=== PATIENT | male | born 1960 | race Caucasian/White ===

== ENCOUNTER → 2018-03-12 | Outpatient (CLI) | payer OTHER ==
[~2018-03-12] MED LIST: LISI-368 PO; LOM PO; OND4 PO; PAN40 PO; PER PO; PRO25 PO; protonix
--- NOTE | 2018-03-15 01:23 | RT HOLTER TEST ---
FACILITY: [facility] PATIENT NAME: GIFTY IRWIN : [id number] MR: [id number] V: [id number] EXAM DATE: ORDERING PHYSICIAN: PORSCHE FLORES TECHNOLOGIST: KALEE Hook-up date: 2018-03-12 13:36:00 Duration: 47:06:00 Test Indications: DIZZINESS Medications: [id number] QRS complexes 16 Ventricular ectopics which represent <1 % of total QRS comp. 12 Supraventricular ectopics which represent <1 % of total QRS comp. * Paced QRS complexes which represent % of total QRS comp. VENTRICULAR ECTOPY 16 Isolated 0 Bigeminal Cycles 0 Couplets 0 Runs 0 Beats in Runs * Beats LONGEST at * BPM at :: -- * Beats FASTEST at * BPM at :: -- SUPRAVENTRICULAR ECTOPY 4 Isolated 0 Couplets 1 Runs 8 Beats in Runs 8 Beats LONGEST at 189 BPM at 06:14:02 2018-03-14 8 Beats FASTEST at 189 BPM at 06:14:02 2018-03-14 HEART RATES 64 MIN at 02:27:00 2018-03-13 95 AVG 193 MAX at 06:14:04 2018-03-14 LONGEST RR 1.040 secs at 02:43:52 2018-03-13 S-T LEVELS Channel 1 -12.800 mm MIN at 13:36:00 2018-03-12 -12.800 mm MAX at 13:36:00 2018-03-12 Channel 2 -12.800 mm MIN at 13:36:00 2018-03-12 -12.800 mm MAX at 13:36:00 2018-03-12 Channel 3 -12.800 mm MIN at 13:36:00 2018-03-12 -12.800 mm MAX at 13:36:00 2018-03-12 The patient was predominantly in a sinus rhythm with rare, asymptomatic supraventricular ectopy (SVE) and ventricular ectopy (VE). The patient was in a sinus tachycardia (108-112 bpm) during the symptom triggered events. There was an asymptomatic 8 beat run of SVE at 189 bpm. There were reported symptoms with the maximum heart rate of 193 bpm. Confirmed by LINUS GRIFFITHS ([id number]) on 03/15/2018 1:23:23 AM Referred By: Overread By: LINUS GRIFFITHS
== END ==
LOC: RESP 07:26
PROVIDERS: ATTEND Family Medicine
DX: I49.2 Junctional premature depolarization (principal)
CPT/HCPCS: 93225; 93226